=== PATIENT | female | born 1955 | race African-American/Black ===

== ENCOUNTER 2017-02-20 08:32 | Inpatient (IN) | payer SELFPAY ==
[2017-02-20] VITALS (9 sets, daily range): BP systolic 109–164; BP diastolic 62–102; BMI 33.0
[2017-02-20 09:26] LABS: BASOPHILS 0.2 % (0.0-2.0); EOSINOPHILS 1.7 % (0-7); HEMATOCRIT 35.9 % (36.0-48.0); HEMOGLOBIN 11.1 g/dL (12-16); IMMATURE GRANULOCYTES 0.3 % (0-5); LYMPHOCYTES 30.8 % (15-50); MCH 30.8 pg (26.0-34.0); MCHC 30.9 g/dL (31.0-37.0); MCV 99.7 fL (80.0-100.0); MEAN PLATELET VOLUME 10.8 fL (7.4-10.4); MONOCYTES 7.4 % (2-11); NEUTROPHILS 59.6 % (40-80); PLATELET COUNT 247 10x3/uL (130-400); RDW 13.8 % (11.5-14.5); WBC 9.7 10x3/uL (4.8-10.8)
[2017-02-20 09:53] LABS: ALBUMIN 2.8 g/dL (3.4-5.0); ANION GAP 8.6 mmol/L (8-16); BILIRUBIN - TOTAL 0.18 mg/dL (0.2-1.3); CALCIUM 8.9 mg/dL (8.5-10.1); CARBON DIOXIDE 34.7 mmol/L (21.0-32.0); CREATININE - SERUM 0.9 mg/dL (0.6-1.3); POTASSIUM - SERUM 4.3 mmol/L (3.5-5.1); PROTEIN - SERUM 6.6 g/dL (6.4-8.2)
[2017-02-20] MEDS ORDERED: MIRALAX17 GM PO (11:49)
[2017-02-20] MEDS ORDERED: ZANTAC150 MG PO (11:50)
[2017-02-20] MEDS ORDERED: K-DUR20 MEQ PO (11:50)
[2017-02-20] MEDS ORDERED: ZESTRIL20 MG PO (11:51)
[2017-02-20] MEDS ORDERED: LANTUS INSULIN10 ML SC (11:51)
[2017-02-20] MEDS ORDERED: SENNA LAXATIVE8.6 MG PO (11:52)
[2017-02-20] MEDS ORDERED: ZOLOFT100 MG PO (11:53)
[2017-02-20] MEDS ORDERED: BENZTROPINE MESY2 MG PO (11:53)
[2017-02-20] MEDS ORDERED: VITAMIN D31000 UNIT PO (11:53)
[2017-02-20] MEDS ORDERED: COREG6.25 MG PO (11:54)
[2017-02-20] MEDS ORDERED: LASIX80 MG PO (11:54)
[2017-02-20] MEDS ORDERED: DEPAKOTE500 MG PO (11:54)
[2017-02-20] MEDS ORDERED: GLUCOPHAGE500 MG PO (11:55)
[2017-02-20] MEDS ORDERED: TUMS500 MG PO (11:55)
[2017-02-20] MEDS ORDERED: NOVOLOG100 U/M1 SC (11:56)
[2017-02-20] MEDS ORDERED: ALBUTEROL1.25 MG/3 INH ×2 (11:56→11:59)
[2017-02-20] MEDS ORDERED: DULCOLAX5 MG PO (11:57)
[2017-02-20] MEDS ORDERED: ADVIL200 MG PO (11:58)
[2017-02-20] MEDS ORDERED: BENADRYL25 MG PO (11:58)
[2017-02-20] MEDS ORDERED: FLUTICASONE PRO16 GM NASAL (12:00)
[2017-02-20] MEDS ORDERED: HALDOL5 MG PO (12:00)
[2017-02-20] MEDS ORDERED: LIPITOR10 MG PO (12:01)
[2017-02-20] MEDS ORDERED: CLOZARIL100 MG PO (12:01)
--- NOTE | 2017-02-20 12:06 | NUR ---
IMAN LÓPEZ RN RECEIVED REPORT FROM ER FOR PT. PT ARRIVED VIA WHEELCHAIR. PT IS HARDLY ABLE TO TALK DUE TO TONGUE BEING VERY SWOLLEN AND LARGE. PT IS SUCTIONING HER MOUTH AT BEDSIDE CURRENTLY FOR CONTINUOUS SECRETIONS FROM MOUTH. ALERT AND ORIENTED. ON ROOM AIR. NO MONITOR (CURRENTLY). IV SEEN TO LEFT HAND/FOREARM AREA THAT IS CURRENTLY SALINE LOCKED. BREATH SOUNDS ARE CLEAR IN ALL LOBES. CHEST HAS EQUAL RISE AND FALL. NO STRIDOR HEARD UPON AUSCULTATION. IDANIA FRANCOIS IS COMPLETING PTS HOME MEDICATION LIST, QUICKSTART, ADMISSION ASSESSMENT, AND ADMISSION HISTORY. IV FLUIDS STARTED ORDERED. WILL CONTINUE TO MONITOR.
--- NOTE | 2017-02-20 12:31 | NUR ---
CALLED [facility] FROM WHICH PT CAME FROM TO SEE WHAT NEW MEDICATION PT IS ON TO CAUSE PTS TONGUE TO SWELL AND PTS NURSE AT [facility] STATED "CLOZARIL" NURSE STATED THAT PTS TONGUE DOES SWELL SLIGHTLY WHEN TAKING THAT MEDICATION AND THEY GIVE HER COGENTIN PRECRIBED TO HELP MANAGE SIDE EFFECTS. NURSE STATED THIS IS THE MOST HER TONGUE HAS SWELLED. WILL CONTINUE TO MONITOR.
--- NOTE | 2017-02-20 12:43 | NUR ---
CALLED DR. MATTHEWS ORDERED IN CHART. INFORMED HIM OF WHAT IS GOING ON WITH PT AND WHY SHE CAME TO UNIT. INFORMED HIM ABOUT BEING ON "CLOZARIL" AND WHAT IT CAUSES PER NURSE FROM [facility]. ALSO INFORMED DR. MATTHEWS THAT PT TAKES COGENTIN AT [facility] TO MANAGE SIDE EFFECTS OF CLOZARIL PER REPORT FROM NURSE AT [facility] ([facility]). DR. MATTHEWS STATED TO HOLD ALL MEDICATIONS PT TAKES FROM [facility] AND TO JUST CONTINUE MEDICATIONS PRESCRIBED IN ER (BENADRYL AND SOLU-MEDROL) AND HE WOULD CONTINUE [facility] MEDICATIONS WHEN HE SEES PT. WILL DO ORDERED AND CONTINUE TO MONITOR.
--- NOTE | 2017-02-20 13:16 | NUR ---
RECEIVED SHASHI TO TRANSFER PT TO ICU. PLACED ORDER AND NOTIFIED COBBLER UPPER BOWEN. CALLED FAMILY TO KEEP THEM UPDATED. PT WILL BE GOING TO 2311. AWAITING ROOM TO BE CLEANED. WILL CONTINUE TO MONTIOR.
--- NOTE | 2017-02-20 14:38 | NUR ---
SPOKE WITH [facility] ICU NURSE AND GAVE REPORT. FORREST RN STATES SHE IS HAVING ROOM CLEANED NOW AND WILL CALL WHEN IT IS READY TO SEND PT. WILL CONTINUE TO MONITOR.
--- NOTE | 2017-02-20 15:25 | NUR ---
TRANSFERED PT TO ICU ORDERED.
--- NOTE | 2017-02-20 15:26 | NUR ---
RECEIVED PT TO ROOM 2312 VIA BED. ICU MONITORS CONNECTED. PT'S TONGUE VISIBLY SWOLLEN, BUT DOES NOT APPEAR TO HINDER BREATHING. PT SELF SUCTIONING SECRETIONS. ST ON CM. WILL CONTINUE TO MONITOR.
--- NOTE | 2017-02-20 17:25 | NUR ---
Patient Name: PEYTON BERKOWITZ Admission Status: ER Accout number: [id number] Admission Date: 02-20-2017 : 1955 Admission Diagnosis: Attending: SHANON Current LOS: 1 Anticipated DC Date: 02-20-2017 Planned Disposition: Home Primary Insurance: UNINSURED DISCOUNT PLAN Discharge Planning Comments: CM MET WITH PATIENT REGARDING D/C NEEDS AND PLANS. PATIENT STATES SHE LIVES WITH HER SPOUSE (GEMMA HERNANDEZ). PATIENT STATED A FRIEND WILL DRIVE HER HOME AT DISCHARGE. PATIENT STATED SHE IS INDEPENDENT BUT HAS HELP FROM MEDICAID 7 DAYS A WEEK. PATIENTS PCP IS DR. HAWKINS AND PHARMACY IS [facility] ON [address]. PATIENT HAS OXYGEN AND GLUCOMETER AT HOME. PATIENT REFUSED HOME HEALTH BECAUSE OF THE MEDICAID HELP SHE ALREADY HAS. CM WILL CONTINUE TO FOLLOW PATIENT WITH D/C NEEDS AND PLANS. PCP DR. ROSS ARRIOLA ON [address] [employer]- [phone] GEMMA HERNANDEZ SPOUSE NO NUMBER Training Personnel Supervisor: Gema Cohen
[2017-02-20 17:52] LABS: C-REACTIVE PROTEIN 1.8 mg/dL (0.0-0.9); THYROID STIMULATING HORMONE 1.79 uIU/mL (0.36-3.74)
--- NOTE | 2017-02-20 18:25 | NUR ---
SPOKE WITH DR WILCOX VIA PHONE, INFORMED OF CONSULT.
[2017-02-20 18:41] LABS: ERYTHROCYTE SEDIMENTATION RATE 70 mm/hr (0-30)
--- NOTE | 2017-02-20 19:00 | NUR ---
RECEIVED SHIFT REPORT FROM IDANIA CLAYTON
--- NOTE | 2017-02-20 19:30 | NUR ---
PT'S SISTER CHAO CALLED, PT SET PASSWORD AND OK'S TALKING TO SISTER ABOUT CARE
--- NOTE | 2017-02-20 19:47 | NUR ---
RESP IN ROOM FOR TREATMENT
--- NOTE | 2017-02-20 19:54 | NUR ---
ADM SOLUMEDROL EMILI PER MD ORDERS, SEE EMAR, INFORMED PT THAT I WILL BE BACK SHORTLY TO DO ASSESSMENT AFTER RESP TREATMENT, PT VERBALIZES UNDERSTANDING, BED IN LOW POSITION, SIDE RAILS X 2, CALL LIGHT IN REACH
--- NOTE | 2017-02-20 20:10 | NUR ---
SPOKE TO IDANIA LYNN, CHARGE NURSE, REGARDING REPORT FROM IDANIA CLAYTON THAT PT CAN HAVE JUICE, IDANIA LYNN, CHARGE NURSE STATES "I WOULD GO AHEAD AND GIVE HER A SMALL AMOUNT OF SOMETHING TO DRINK TO MAKE SURE SHE CAN TOLERATE IT"
--- NOTE | 2017-02-20 20:15 | NUR ---
ASSESSMENT PER FLOW SHEET, VS CONTINUE Q1H, IV IN RIGHT HAND INTACT WITH NO REDNESS OR EDEMA INFUSING VIA PUMP D5 1/2NS AT 100 ML/HR, TELEMETRY ON, PT REPORTS FLATUS, NO BM IN A WEEK, AND VOIDING WITH NO DIFFICULTY, PT INST ON AND VERBALIZES UNDERSTANDING OF USING CALL LIGHT FOR ANY ASSISTANCE, PT SERVED SMALL OF DIET [place] SODA, PT TOLERATED WELL AT THIS TIME, INFORMED PT THAT I WILL SERVE A SMALL AMOUNT THROUGH OUT THE NIGHT TO MAKE SURE SHE HAS NO DIFFICULTY, PT VERBALIZES UNDERSTANDING, KRISTY AVAILABLE AT SIDE, PT DENIES PAIN, PT REQUESTED AND PROVIDED BOX OF KLEENEX
--- NOTE | 2017-02-20 20:45 | NUR ---
PT RAMANAERS OUT FOR ME, THIS RN TO ROOM, PT UP TO BR WITH ASSISTANCE, GAIT SLIGHTLY UNSTEADY, PT TO BEDSIDE COMMODE, VOIDED APPROX 250 MLS OF DARK YELLOW URINE, PT DOES OWN DAYANA CARE, PT TO SINK TO WASH HAND, PT BACK TO BED, PT POSITIONED SELF, BP CUFF BACK ON, UPPER RIGHT ELECTRODE REPLACED, PT DENIES FURTHER NEEDS, BED IN LOW POSITION, SIDE RAILS X 2, CALL LIGHT IN REACH
--- NOTE | 2017-02-20 21:26 | NUR ---
PT RESTING WITH EYES CLOSED, AROUSES TO SOFT VERBAL STIMULATION, VS CONTINUE, PULSE OX PLACED ON OTHER EAR, ADM 2100 MEDS IV PER MD ORDERS, SEE EMAR, PT REQUESTED AND SERVED SMALL AMOUNT OF DIET [place] SODA, PT TOLERATED WELL, REPORTS NO DIFFICULTY IN SWALLOWING IT, PT DENIES FURTHER NEEDS OR PAIN AT THIS TIME
--- NOTE | 2017-02-20 22:39 | NUR ---
PT RESTING WITH EYES CLOSED, RESP QUIET, NO DISTRESS NOTED, LEFT UNDISTURBED AT THIS TIME
--- NOTE | 2017-02-20 23:28 | NUR ---
RESP TO ROOM FOR TREATMENT
[2017-02-21] VITALS (21 sets, daily range): BP systolic 105–152; BP diastolic 35–95; BMI 32.9
--- NOTE | 2017-02-21 00:10 | NUR ---
PT RESTING WITH EYES CLOSED, AROUSES TO SOFT VERBAL STIMULATION, VS CONTINUE, TEMP OBTAINED, FSBS 310, ADM HUMALOG SUBQ PER MD ORDERS, VERIFIED PER THIS RN AND ERNESTO ALTMAN RN, PT REPOSITIONED IN BED, DENIES NEEDS AT THIS TIME
--- NOTE | 2017-02-21 00:56 | NUR ---
REPORT TO ERNESTO ALTMAN RN
--- NOTE | 2017-02-21 01:00 | NUR ---
RECEIVED REPORT AND RESUMED CARE. PATIENT RESTING WELL, VSS.
--- NOTE | 2017-02-21 04:00 | NUR ---
PATIENT UP TO BEDSIDE COMMODE. VOIDED 600CC OF URINE. BED LINENS CHANGED AT THIS TIME. INCONTINENT OF URINE WHILE SLEEPING.
[2017-02-21 04:16] LABS: BASOPHILS 0.1 % (0.0-2.0); EOSINOPHILS 0 % (0-7); HEMATOCRIT 34.5 % (36.0-48.0); HEMOGLOBIN 11.2 g/dL (12-16); IMMATURE GRANULOCYTES 0.4 % (0-5); LYMPHOCYTES 8.9 % (15-50); MCH 31.9 pg (26.0-34.0); MCHC 32.5 g/dL (31.0-37.0); MCV 98.3 fL (80.0-100.0); MEAN PLATELET VOLUME 10.4 fL (7.4-10.4); MONOCYTES 1.4 % (2-11); NEUTROPHILS 89.2 % (40-80); PLATELET COUNT 270 10x3/uL (130-400); RBC 3.51 10x6/uL (4.00-5.40); RDW 13.7 % (11.5-14.5); WBC 11.5 10x3/uL (4.8-10.8)
[2017-02-21 04:39] LABS: ALBUMIN 2.5 g/dL (3.4-5.0); ANION GAP 7.9 mmol/L (8-16); BILIRUBIN - TOTAL 0.2 mg/dL (0.2-1.3); CALCIUM 9.1 mg/dL (8.5-10.1); CARBON DIOXIDE 33.8 mmol/L (21.0-32.0); CREATININE - SERUM 1.1 mg/dL (0.6-1.3); MAGNESIUM - SERUM 2.2 mg/dL (1.8-2.4); PHOSPHOROUS 3.5 mg/dL (2.5-4.9); POTASSIUM - SERUM 4.7 mmol/L (3.5-5.1); PROTEIN - SERUM 7.3 g/dL (6.4-8.2)
--- NOTE | 2017-02-21 06:00 | NUR ---
NO VISITORS AT THIS TIME.
--- NOTE | 2017-02-21 08:11 | NUR ---
UP IN BED AWAKE AT THIS TIME. NO ACUTE DISTRESS NOTED. ASSISTED TO TOILET, CONTINENT VOID NOTED 200ML. ASSISTED VIA STAND BY ASSIST. WILL CONTINUE PLAN OF CARE.
--- NOTE | 2017-02-21 10:11 | NUR ---
NO ACUTE DISTRESS NOTED. VSS. PT AWAKE WATCHING TV AT THIS TIME. WILL CONTINUE PLAN OF CARE.
--- NOTE | 2017-02-21 12:39 | NUR ---
UP ON SIDE OF BED EATING LUNCH AT THIS TIME. NO ACUTE DISTRESS NOTED. PT INDEPENDENT IN BED. NO ACUTE DISTRESS NOTED. NO SIGNS OR SYMPTOMS OF ASPIRATION NOTED. WILL CONTINUE PLAN OF CARE.
--- NOTE | 2017-02-21 13:37 | NUR ---
RESTING AT THIS TIME. NO ACUTE DISTRESS NOTED. RESPIRATIONS AT STEADY AND UNLABORED RATE. AWAKENS EASILY WHEN STAFF STATES PT NAME. WILL CONTINUE PLAN OF CARE.
--- NOTE | 2017-02-21 15:06 | NUR ---
INCONTINENT VOID NOTED. TOTAL BED CHANGE PROVIDED AT THIS TIME. FAMILY AT BEDSIDE. NO ACUTE DISTRESS NOTED. WILL CONTINUE PLAN OF CARE.
--- NOTE | 2017-02-21 16:39 | NUR ---
AWAKE IN BED AT THIS TIME WATCHING TV. DENIES ANY NEEDS. NO ACUTE DISTRESS NOTED. WILL CONTINUE PLAN OF CARE.
--- NOTE | 2017-02-21 17:49 | NUR ---
INCONTINENT VOID NOTED. TOTAL LINEN CHANGE PROVIDED. NO ACUTE DISTRESS NOTED. WILL CONTINUE PLAN OF CARE.
--- NOTE | 2017-02-21 19:00 | NUR ---
SHIFT ASSESSMENT COMPLETE, SEE FOR DETAILS. AAOX4, VSS. DENIES NEED, CL IN REACH.
--- NOTE | 2017-02-21 21:00 | NUR ---
MEDS GIVEN, DENIES NEED, CL IN REACH.
--- NOTE | 2017-02-21 23:30 | NUR ---
PATIENT TRANSFERED TO BED 2206 VIA WHEELCHAIR.
[2017-02-22] VITALS: BP 153/65
--- NOTE | 2017-02-22 00:06 | NUR ---
RECEIVED FROM ICU VIA W/C FOR ROOM 2206. PT WAS MADE COMFORTABLE AND IS NOW SITTING AT THE BEDSIDE WITH THE DOOR OPEN DRINKING FLUIDS.
[2017-02-22 04:00] VITALS: BP 118/62
[2017-02-22] MEDS ORDERED: GLUCOPHAGE500 MG PO (07:50)
[2017-02-22] MEDS ORDERED: FUROSEMIDE20 MG PO (07:51)
[2017-02-22] MEDS ORDERED: STERAPRED DS 1010 MG PO (07:54)
--- NOTE | 2017-02-22 07:58 | NUR ---
ALERTED BY RENTAL MANAGERMARISOL. THAT SUGAR IS 516. WILL ADMINISTERED INSULIN.
[2017-02-22 08:25] VITALS: BP 136/67
--- NOTE | 2017-02-22 08:37 | NUR ---
PT AOX4 RESP EVEN AND NONLABORED IV TO RIGHT HAND PATENT AND INTACT. PT DENIES NEEDS AT THIS TIME PT IN FOR IV ANTIBIOTICS AND FLUIDS BED AT LOWEST SETTING AND CALL LIGHT WITHIN REACH WILL CONTINUE TO MONITOR
--- NOTE | 2017-02-22 09:51 | NUR ---
DC PLAN: Return to [facility]. DC order received. Patient will return to [facility]. Jose spoke to [facility] [phone]. Nurse report to be called to Makenzie @ [phone]. Transportation time to be arranged when nurse report is called. Please fax dc instructions and dc medication list to [phone]. Corrie Alvarado RN, [facility] [phone]
--- NOTE | 2017-02-22 11:29 | NUR ---
PT REPORT CALLED TO MP LEY, AT [facility]. IV TO R HAND DC'D WITH CATHETER INTACT. DC PAPERS SIGNED WITHOUT QUESTIONS. MP LEY, STATED THAT IT WOULD BE AN HOUR BEFORE THEIR TECHNICAL SALES CONSULTANT COULD WIND TUNNEL TECHNICIAN THE PT. STATED THIS WAS FINE. BED LOW, CALL LIGHT IN REACH, DENIES NEEDS. CPOC.
--- NOTE | 2017-03-10 13:10 | CN ---
PATIENT NAME:PEYTON NELSON MEDICAL RECORD: [id number] : 57 LOCATION:D.MS [id number] ADMIT DATE: 02/20/17 ACCOUNT: [id number] CONSULTING PHYSICIAN: JERARDO WILCOX MD REFERRING PHYSICIAN: TAMIA MATTHEWS MD DATE OF CONSULTATION: 02/20/2017 Otolaryngology Consultation HISTORY OF PRESENT ILLNESS: Peyton Nelson is a 61-year-old female, I saw her about a half hour after the initially called, but apparently, she is been admitted either yesterday or over 12 hours ago or so something like that. She said she woke up in the morning. Tongue was large, could not talk. She could breathe. She presented to the Emergency Room. She is getting better and she was sent to the floor and then she was sent to the ICU. She says she has got tremendously better today. She can talk now, this is the first time it has ever happened. She has been on lisinopril. PAST MEDICAL HISTORY: Reviewed in the chart and get some information from the nurses. PHYSICAL EXAMINATION: GENERAL: She is a healthy-appearing female. Tongue, she can put in her mouth, but it is obvious, the lips are protruding a little bit when she forces it in, but she is able to talk. She is conversant. She has no airway distress at all. EYES: Sclerae and conjunctivae are normal. NOSE: No mass, polyps or drainage. EARS: Canals and TMs are normal. NECK: No masses, no adenopathy. ORAL CAVITY: The tongue is large, obviously the way she describes is much larger earlier, but I can see her palate and her pharynx and it looks like that the swelling is limited to her tongue, although it is symmetric in both sides. The tongue are involving the floor of mouth. NECK: Normal. The nurses say that she has got significantly better even over the past 3 hours. She says the worst that was about 7:00 o'clock in the morning or roughly 12 hours ago and has been getting steadily better since then. IMPRESSION: Angioedema involving the tongue. She is dramatically better. I expect continued improvement. She should be able to probably go home tomorrow. We will going to need the list ERNESTO inhibitors on her allergies on her chart, make sure she does get them again and she should define. I can see her again if needed. TRANSINT:[id number] Voice Confirmation ID: [id number] DOCUMENT ID: [id number] CONSULT REPORT [id number] PEYTON NELSON, JERARDO FERGUSON at 1310 CC: [id number] DICTATION DATE: 02/21/17 1301 PLATE FURNACE OPERATOR: 02/21/17 2146 DIS IN 02/22/17 [place] [id number] [place] [id number]
--- NOTE | 2017-04-17 12:11 | CN ---
PATIENT NAME:PEYTON NELSON MEDICAL RECORD: [id number] : 57 LOCATION:D.MS [id number] ADMIT DATE: 02/20/17 ACCOUNT: [id number] CONSULTING PHYSICIAN: CK BUTTS MD REFERRING PHYSICIAN: ANGEL ARIZA MD DATE OF CONSULTATION: 02/20/2017 CONSULT REQUESTING PHYSICIAN: Angel Ariza MD. REASON FOR CONSULTATION: Angioedema, swollen tongue. HISTORY OF PRESENT ILLNESS: Ms. Nelson is a 61-year-old -[place] female. She is a correction resident with a history of bipolar disorder and schizophrenia. Recently, the patient's clonazepam and Haldol has been increased and also she is taking lisinopril. This morning, she woke up her tongue was swollen. They brought her to the ER. She was not in any acute distress, but she has a slurred speech and her tongue is almost protruding out from the mouth. There is no stridor. REVIEW OF SYSTEMS: Mainly in the history of present illness. PAST MEDICAL HISTORY: 1. COPD. 2. Hypertension. 3. Dependent edema. 4. Diabetes. 5. Allergies. 6. Diabetes mellitus with neuropathy. 7. History of constipation. 8. History of schizophrenia and bipolar disorder. ALLERGIES: SHE IS ALLERGIC TO PENICILLIN AND SULFA. USP MEDICATIONS: The list was reviewed. PERSONAL AND SOCIAL HISTORY: The patient is still smoking half pack per day since teenage. She is a nondrinker. FAMILY HISTORY: Significant for diabetes and cardiovascular disease. PHYSICAL EXAMINATION: GENERAL: Now, the patient is lying comfortably. She is not in acute distress. VITAL SIGNS: The blood pressure is 136/62, pulse is 96, respirations 16, temperature 98.2, SPO2 is 100% on 2 liters nasal cannula. HEENT: Conjunctivae are pink. Sclerae are nonicteric. Examination of the mouth, the patient's tongue is swollen. There are no audible stridors on listening on the neck. NECK: Supple. There is no JVD. CHEST: Excursion is minimal on both sides. No wheeze and no rales. HEART: Rhythm regular, normal sound, no murmur. ABDOMEN: Soft. Bowel sounds present. No hepatosplenomegaly. RECTAL: Deferred. EXTREMITIES: No cyanosis and no clubbing. There is 1+ pedal edema. SKIN: Warm, normal turgor. CENTRAL NERVOUS SYSTEM: The patient is awake and alert. There are no obvious CONSULT REPORT [id number] PEYTON NELSON cranial nerve abnormalities. The gait was not tested. LABORATORY DATA: CBC: WBC 9.7, hemoglobin 11.1, hematocrit 35.9 and the platelet count is 247. The neutrophils are 59.6% and eosinophils are 1.7%. Chemistry: Sodium 141, potassium 4.3, BUN is 17, creatinine is 0.9, bicarbonate is 34.7, serum glucose of 166. Liver enzymes within normal range. Albumin was 2.8. IMPRESSION: 1. Angioedema, which is acute, most likely secondary to lisinopril, doubt with Haldol and Clozaril. 2. Tongue swelling secondary to angioedema. 3. Hypertension. 4. Schizophrenia, bipolar disorder. 5. Chronic obstructive pulmonary disease without exacerbation. 6. Hyperlipidemia. 7. Morbid obesity. 8. Tobacco dependence syndrome. RECOMMENDATION: 1. Continue methylprednisolone 60 mg IV q.6 hourly, Benadryl 25 mg IV q.6 hourly. Start on famotidine. Start on albuterol/ipratropium nebulizer. 2. Racemic nebulizer p.r.n. 3. Supplemental oxygen as required and then, we will change IV fluids to D5 half normal saline. 4. Sliding scale for diabetes mellitus. Check the compliment for C-reactive protein and ESR. Check the TSH. Dr. Ariza, once again, thank you for involving me in the care of Ms. Nelson. TRANSINT:[id number] Voice Confirmation ID: [id number] DOCUMENT ID: [id number] CK BUTTS MD at 1211 CC: ANGEL ARIZA MD [id number] DICTATION DATE: 02/20/17 1731 PELT GRADER: 02/21/17 0216 DIS IN 02/22/17 [facility] [address] [place] [id number]
== END 2017-02-22 12:15 | DRG 916 ==
LOC: D.ER 08:32 → D.M2 10:46 → D.ICU 15:20 → D.MS 02-21 23:10
PROVIDERS: Emergency Medicine; Internal Medicine Pulmonary Disease; ADMIT Family Medicine
DX: T78.3XXA Angioneurotic edema, initial encounter (principal); J44.9 Chronic obstructive pulmonary disease, unspecified; F20.9 Schizophrenia, unspecified; F31.9 Bipolar disorder, unspecified; I10 Essential (primary) hypertension; E11.40 Type 2 diabetes mellitus with diabetic neuropathy, unspecified; E66.01 Morbid (severe) obesity due to excess calories; Z68.33 Body mass index [BMI] 33.0-33.9, adult; F17.200 Nicotine dependence, unspecified, uncomplicated; E78.5 Hyperlipidemia, unspecified

== ENCOUNTER 2017-09-02 17:51 | Emergency (ER) | payer SELFPAY ==
[2017-02-21 10:03] VITALS: BMI 32.9
[~2017-09-02 17:51] MED LIST: ADVIL200 MG PO; ALBUTEROL1.25 MG/3 INH; BENADRYL25 MG PO; BENZTROPINE MESY2 MG PO; CLOZARIL100 MG PO; COREG6.25 MG PO; DEPAKOTE500 MG PO; DULCOLAX5 MG PO; FLUTICASONE PRO16 GM NASAL; FUROSEMIDE20 MG PO; GLUCOPHAGE500 MG PO; HALDOL5 MG PO; K-DUR20 MEQ PO; LANTUS INSULIN10 ML SC; LASIX80 MG PO; LIPITOR10 MG PO; MIRALAX17 GM PO; NOVOLOG100 U/M1 SC; SENNA LAXATIVE8.6 MG PO; STERAPRED DS 1010 MG PO; TUMS500 MG PO; VITAMIN D31000 UNIT PO; ZANTAC150 MG PO; ZESTRIL20 MG PO; ZOLOFT100 MG PO
[2017-09-02 18:38] LABS: BASOPHILS 0.3 % (0-2); EOSINOPHILS 0.7 % (0-7); HEMATOCRIT 34.3 % (36.0-48.0); IMMATURE GRANULOCYTES 0.1 % (0-5); LYMPHOCYTES 44.3 % (15-50); MCH 31.3 pg (26.0-34.0); MCHC 32.1 g/dL (31.0-37.0); MCV 97.7 fL (80.0-100.0); MEAN PLATELET VOLUME 11.2 fL (7.4-10.4); MONOCYTES 7.8 % (2-11); NEUTROPHILS 46.8 % (40-80); RBC 3.51 10x6/uL (4.00-5.40); RDW 14.3 % (11.5-14.5); WBC 7.1 10x3/uL (4.8-10.8)
[2017-09-02 18:40] LABS: PLATELET COUNT 197 10x3/uL (130-400)
[2017-09-02 18:44] LABS: APPEARANCE CLEAR (CLEAR); BILIRUBIN NEGATIVE (NEGATIVE); COLOR YELLOW (YELLOW); GLUCOSE NEGATIVE (NEGATIVE); KETONE NEGATIVE (NEGATIVE); NITRITE NEGATIVE (NEGATIVE); PROTEIN TRACE mg/dL (NEGATIVE); SPECIFIC GRAVITY 1.025 (1.005-1.020); UROBILINOGEN NORMAL (NORMAL)
[2017-09-02 18:59] LABS: ALBUMIN 3.4 g/dL (3.4-5.0); ALKALINE PHOSPHATASE 65 U/L (46-116); ALT (SGPT) 11 U/L (10-68); BILIRUBIN - TOTAL 0.38 mg/dL (0.2-1.3); CALC OSMOLALITY 280 mosm/kg (275-300); CALCIUM 9.3 mg/dL (8.5-10.1); CARBON DIOXIDE 26.8 mmol/L (21.0-32.0); CHLORIDE - SERUM 104 mmol/L (98-107); CREATININE - SERUM 0.8 mg/dL (0.6-1.3); POTASSIUM - SERUM 3.4 mmol/L (3.5-5.1); PROTEIN - SERUM 6.9 g/dL (6.4-8.2); SODIUM 141 mmol/L (136-145); UREA NITROGEN 13 mg/dL (7-18); eGFR NON AFRICAN AMERICAN 77 mL/min (90-120)
[2017-09-02 19:09] LABS: GLUCOSE 97 mg/dL (74-106)
[2017-09-02 19:37] LABS: UDS - AMPHET NEGATIVE QUAL (NEGATIVE); UDS - BARB NEGATIVE QUAL (NEGATIVE); UDS - BENZO POSITIVE QUAL (NEGATIVE); UDS - COCAINE NEGATIVE QUAL (NEGATIVE); UDS - OPIATE NEGATIVE QUAL (NEGATIVE); UDS - PCP NEGATIVE QUAL (NEGATIVE); UDS - THC NEGATIVE QUAL (NEGATIVE)
== END 2017-09-03 00:17 | disposition short-term general hospital (02) ==
LOC: D.ER 17:51
PROVIDERS: Family Medicine
DX: F20.89 Other schizophrenia (principal); G24.09 Other drug induced dystonia; E87.6 Hypokalemia; M17.11 Unilateral primary osteoarthritis, right knee; K21.9 Gastro-esophageal reflux disease without esophagitis; I10 Essential (primary) hypertension; E11.9 Type 2 diabetes mellitus without complications

== ENCOUNTER 2019-12-03 18:49 | Emergency (ER) | payer MEDICAID ==
[2017-02-21 10:03] VITALS: Ht 167.6 cm; Wt 81.8 kg
[~2019-12-03] VITALS: Ht 167.6 cm; Wt 81.8 kg
[2019-12-03 19:35] LABS: HEMATOCRIT 40.1 % (36.0-48.0); HEMOGLOBIN 12.8 g/dL (12-16); MCH 31.4 pg (26.0-34.0); MCHC 31.9 g/dL (31.0-37.0); MCV 98.5 fL (80.0-100.0); MEAN PLATELET VOLUME 11.1 fL (7.4-10.4); PLATELET COUNT 178 10x3/uL (130-400); RBC 4.07 10x6/uL (4.00-5.40); RDW 12.9 % (11.5-14.5); WBC 7.4 10x3/uL (4.8-10.8)
[2019-12-03 19:46] LABS: CALC OSMOLALITY 284 mosm/kg (275-300); CALCIUM 9.3 mg/dL (8.5-10.1); CHLORIDE - SERUM 105 mmol/L (98-107); CREATININE - SERUM 0.8 mg/dL (0.6-1.3); GLUCOSE 103 mg/dL (74-106); POTASSIUM - SERUM 4.3 mmol/L (3.5-5.1); SODIUM 143 mmol/L (136-145); UREA NITROGEN 12 mg/dL (7-18); eGFR NON AFRICAN AMERICAN 77 mL/min (90-120)
[2019-12-03 20:00] LABS: ALBUMIN 3.2 g/dL (3.4-5.0); ALKALINE PHOSPHATASE 60 U/L (46-116); ALT (SGPT) 15 U/L (10-68); BASOPHILS 1 % (0-2); BILIRUBIN - TOTAL 0.39 mg/dL (0.2-1.3); EOSINOPHILS 2 % (0-7); LYMPHOCYTES 60 % (15-50); MAGNESIUM - SERUM 1.8 mg/dL (1.8-2.4); MONOCYTES 2 % (2-11); NEUTROPHILS 34 % (40-80); THYROID STIMULATING HORMONE 1.88 uIU/mL (0.36-3.74)
[2019-12-03 20:01] LABS: PLATELET ESTIMATE NORMAL
[2019-12-03 20:10] LABS: APPEARANCE CLEAR (CLEAR); BILIRUBIN NEGATIVE (NEGATIVE); COLOR STRAW (YELLOW); GLUCOSE NEGATIVE (NEGATIVE); KETONE SMALL mg/dL (NEGATIVE); NITRITE NEGATIVE (NEGATIVE); PROTEIN NEGATIVE (NEGATIVE); UROBILINOGEN NORMAL (NORMAL)
[2019-12-03 20:11] LABS: UDS - AMPHET NEGATIVE QUAL (NEGATIVE); UDS - BARB NEGATIVE QUAL (NEGATIVE); UDS - BENZO NEGATIVE QUAL (NEGATIVE); UDS - COCAINE NEGATIVE QUAL (NEGATIVE); UDS - OPIATE NEGATIVE QUAL (NEGATIVE); UDS - PCP NEGATIVE QUAL (NEGATIVE); UDS - THC NEGATIVE QUAL (NEGATIVE)
[2019-12-03 20:12] LABS: BACTERIA FEW /hpf (NEGATIVE); EPITHELIAL CELLS 0-5 /hpf (0-5); RED CELLS - URINE 0-5 /hpf (0-5); WHITE CELLS - URINE 0-5 /hpf (NEGATIVE)
[2019-12-04 00:07] VITALS: BP 180/89
== END 2019-12-04 00:08 | disposition home or self-care (01) ==
LOC: D.ER 18:49
PROVIDERS: Emergency Medicine
DX: F41.9 Anxiety disorder, unspecified (principal); Y04.2XXA Assault by strike against or bumped into by another person, initial encounter; F20.9 Schizophrenia, unspecified; I10 Essential (primary) hypertension; J44.9 Chronic obstructive pulmonary disease, unspecified; E11.9 Type 2 diabetes mellitus without complications; Z79.4 Long term (current) use of insulin